=== PATIENT | male | born 2000 | race Hispanic/Latino ===

== ENCOUNTER 2024-06-21 12:58 | Emergency (ER) | payer SELFPAY ==
[~2024-06-21] VITALS: Ht 180.3 cm; Wt 71.7 kg
--- NOTE | 2024-06-21 13:43 | ERN ---
General Chief Complaint: Sore Throat Stated Complaint: SWOLLEN TONSILS,FLU LIKE SYMPTOMS Time Seen by MD: 13:02 History of Present Illness Initial Comments 24-year-old male with a week's worth of sore throat on and off fevers body aches and decreased p.o. intake. Allergies: Coded Allergies: No Known Allergies (Unverified Allergy, Unknown, 06/21/24) Past Medical History Past Medical History: No Pertinent History Past Surgical History: None ROS Dictation CONSTITUTIONAL: Fever and chills HEAD/FACE: No signs of trauma. EENT: Sore throat RESPIRATORY: No cough, no orthopnea, no SOB, no stridor, no wheezing. CARDIOVASCULAR: No chest pain, no edema, no palpitations, no syncope. GASTROINTESTINAL/ABDOMINAL: No abdominal pain, no constipation, no diarrhea, no nausea, no vomiting. GENITOURINARY: No abnormal discharge, no dysuria, no frequent urination, no hematuria. No complaints of pain in the genitals. MUSCULOSKELETAL: No back pain, no gout, no joint pain, no joint swelling, no muscle pain, no muscle stiffness, no neck pain. INTEGUMENTARY: No change in color, no change in hair/nails, no dryness, no lesion, no lumps, no rash. NEUROLOGICAL/PSYCH: No anxiety, not depressed, no emotional problem, no headache, no numbness, no pre-existing deficit, no history of seizures, no tremors, no weakness. HEMATOLOGIC/LYMPHATIC: Not anemic, no history of blood clots, no apparent bleeding, no bruising, glands not swollen. All Systems Negative, Except as Noted. Physical Exam Physical Exam Dictation VITAL SIGNS: Reviewed. GENERAL APPEARANCE: Alert, oriented x3, no acute distress HEAD AND FACE: Non-traumatic. EYES: PERRL, pink conjunctivas, eyelid no trauma, anterior chamber clear. EARS: Pinnas intact and no signs of trauma or erythema. Ear canals clear and no discharge. TMs no erythema. NOSE: No discharge, no bleeding. OROPHARYNX: Herpangina. Mild gingivostomatitis NECK: Supple, non-tender, no thyromegaly, no masses, no JVD, no bruits. BREAST: Deferred. CHEST: No tenderness, no crepitus, no paradoxical movement, no retractions. LUNGS: Clear, well-ventilated, symmetric, no rales, no wheezing, no rhonchi, no stridor, good breath sounds bilaterally. HEART: Regular rate, regular rhythm, no murmur, no gallops. VASCULAR: No peripheral edema. ABDOMEN: Soft, positive bowel sounds, nondistended, no guarding, nontender, no rebound, no masses no hepatomegaly, no splenomegaly, no Haynes's sign, no hernias. RECTAL: Deferred. GENITAL: Deferred. NEUROLOGICAL: Normal speech, gross motor function intact, gross sensory function intact. MUSCULOSKELETAL: Neck nontender, full range of motion, back nontender, full range of motion. EXTREMITIES: Nontender, full range of motion. SKIN: Color pink, dry, no turgor, no rash, no lacerations, no abrasions, no contusions. LYMPHATICS: Deferred. MDM CC: Sore throat and fever on and off for a week Historian: Patient Comorbidities: None Vital signs stable Clinical exam is consistent with herpangina No signs of dehydration No labs or imaging indicated We will DC with supportive care. ED Course Orders Procedure Category Date Status Time Rapid (Group A Strep) LAB 06/21/24 Logged 13:04 Influenza Type A & B, LAB 06/21/24 Logged Rapid 13:04 Vital Signs Date Time Temp Pulse Resp B/P (MAP) Pulse Ox O2 Delivery O2 Flow Rate FiO2 06/21/24 13:32 98.4 94 16 124/75 99 Room Air 0 DX & DISP Disposition: Discharge Departure Impression: Primary Impression: Herpangina Condition: Stable Additional Instructions: You have herpangina. This is a viral upper respiratory infection. This type of infection does not require antibiotics. It is an infectious disease caused by a Coxsackie virus. Be sure to drink plenty of liquids. An electrolyte solution such as Gatorade or warm broths are a good choice. Avoid acidic or carbonated drinks. Alternate 800 mg of ibuprofen and 1000 mg of Tylenol every 4 hours as needed for pain or fever. These medications are gmdm-zys-swahpat. Sooth your throat with warm water gargles as needed. You can also use throat lozenges for relief. Cool liquids or popsicles or a good choice. If you eat whole foods, choose a soft, bland diet. Avoid spicy, salty, and crunchy foods. Be sure to wash her hands frequently as this is a contagious disease. Please return to the emergency department if you have any concerns. Referrals: NONE (PCP) DANIEL YOO DO Jun 21, 2024 13:43
[2024-06-21 13:49] VITALS: BP 132/56; PULSE 84; RESP 20; TEMP 98.8; O2SAT 98
== END 2024-06-21 13:53 | disposition home or self-care (01) ==
LOC: EDH 12:58
DX: B08.5 Enteroviral vesicular pharyngitis (principal)
CPT/HCPCS: 99282

== ENCOUNTER 2024-11-29 16:57 | Emergency (ER) | payer OTHER ==
[~2024-11-29] VITALS: Ht 180.3 cm; Wt 74.8 kg
[2024-11-29 17:17] VITALS: BP 142/72; PULSE 52; RESP 16; TEMP 98.1; O2SAT 98
[2024-11-29] MEDS ORDERED: NAPR-1194 PO (17:40)
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
--- NOTE | 2024-11-29 17:49 | NUR ---
unable to depart due to reg process
--- NOTE | 2024-11-29 18:16 | HMCIMG ---
HAND 3+VWS LT HISTORY: Thumb pain COMPARISON: None TECHNIQUE: 3 images of the left hemidiaphragm are obtained. FINDINGS: Bone density is seen at the distal ulna/ulnar styloid is suggested to old fracture. There is no acute displaced fracture or dislocation. IMPRESSION: 1. Findings as described above.
== END 2024-11-29 18:20 | disposition home or self-care (01) ==
LOC: EDH 16:57
DX: S63.602A Unspecified sprain of left thumb, initial encounter (principal); Y08.89XA Assault by other specified means, initial encounter; Y93.89 Activity, other specified; Y92.89 Other specified places as the place of occurrence of the external cause; Y99.8 Other external cause status
CPT/HCPCS: 29125; 73130; 99283